=== PATIENT | female | born 1975 | race Caucasian/White ===

== ENCOUNTER 2020-10-07 11:02 | Emergency (ER) | payer MEDICAID ==
[~2020-10-07] VITALS: Ht 180.3 cm; Wt 82.0 kg
[2020-10-07] MEDS ORDERED: TETANUS, DIPHTHERIA, PERTUSSIS VAC/PF 0.5ML (>7YR OLD) IM ONE (13:00)
[2020-10-07 13:47] VITALS: BP 148/87
== END 2020-10-07 13:48 | disposition home or self-care (01) ==
LOC: ER 11:51
DX: L84 Corns and callosities (principal); R53.1 Weakness; M79.7 Fibromyalgia; F41.9 Anxiety disorder, unspecified; I10 Essential (primary) hypertension; Z23 Encounter for immunization; Z85.828 Personal history of other malignant neoplasm of skin; Z87.891 Personal history of nicotine dependence
CPT/HCPCS: 90471; 90715; 93005; 99283

== ENCOUNTER 2021-02-22 13:20 | Emergency (ER) | payer MEDICAID ==
[2021-02-23] MEDS ORDERED: LOPE2CAP MT (00:22)
== END 2021-02-22 13:36 | disposition left against medical advice (07) ==
LOC: ER 13:20
DX: Z53.21 Procedure and treatment not carried out due to patient leaving prior to being seen by health care provider (principal)

== ENCOUNTER 2021-02-22 13:58 | Emergency (ER) | payer MEDICAID ==
[~2021-02-22] VITALS: Ht 180.3 cm; Wt 81.0 kg
[2021-02-22] MEDS ORDERED: LOPERAMIDE HCL 2MG CAPSULE PO ONE (23:15)
[2021-02-23 00:04] LABS: BASOPHILS % 0.7 % (0.0-2.0); HEMATOCRIT. 38.4 % (36.0-48.0); HEMOGLOBIN. 13.1 g/dL (12.0-16.0); LYMPHOCYTES % 31.7 % (20.0-50.0); MEAN CORPUSCULAR VOLUME 87.6 fL (81.0-99.0); MEAN PLATELET VOLUME 8.2 fl (7.4-10.4); MONOCYTES % 7.3 % (2.0-8.0); NEUTROPHILS % 59.3 % (40.0-76.0); PLATELET 268 x1000/uL (130-400); RED BLOOD CELL COUNT 4.38 mill/uL (4.2-5.4); RED CELL DISTRIBUTION WIDTH 14.9 % (11.6-14.6)
[2021-02-23 00:08] LABS: CHLORIDE 109 mEq/L (98-107)
[2021-02-23] MEDS ORDERED: LOPE2CAP MT (00:22)
[2021-02-23 00:36] VITALS: BP 138/84
== END 2021-02-23 00:38 | disposition home or self-care (01) ==
LOC: ER 13:58
DX: R19.7 Diarrhea, unspecified (principal); I10 Essential (primary) hypertension; F41.9 Anxiety disorder, unspecified; Z85.6 Personal history of leukemia; I49.9 Cardiac arrhythmia, unspecified
CPT/HCPCS: 36415; 80053; 85025; 93005; 99284